=== PATIENT | female | born 1985 | race Two or more races ===

== ENCOUNTER 2018-09-30 00:14 | Emergency (ER) | payer SELFPAY ==
--- NOTE | 2018-09-30 03:28 | ED PDOC ---
HPI: Trauma/Fall - HPI Time Seen by Provider: 09/30/18 00:27 Chief Complaint (Nursing): Alcohol Ingestion Chief Complaint (Provider): Fall History Per: Patient History/Exam Limitations: no limitations Onset/Duration Of Symptoms: Hrs (today) Additional Complaint(s): Radha Dhillon is a 33 year old female, with a past medical history of hypothyroidism, who was brought to the emergency department by EMS for evaluation after she fell downstairs today. Patient admits to drinking alcohol and states she fell down the stairs with trauma to her face and losing x2 teeth. Patient doesn't recall events and is unsure if she lost consciousness. She is currently not complaining of any pain. She denies any drug use or other possible injuries. No further medical complaints. PMD: None provided. Past Medical History Reviewed: Historical Data, Nursing Documentation, Vital Signs Vital Signs: Last Vital Signs Temp Pulse 96 H 09/30/18 00:20 Resp 17 09/30/18 00:20 BP 121/87 09/30/18 00:20 Pulse Ox 97 09/30/18 00:20 - Medical History PMH: Hypothyroidism - Surgical History Surgical History: No Surg Hx - Family History Family History: States: Unknown Family Hx - Social History Current smoker - smoking cessation education provided: Yes (light smoker <10 cigarretes daily) Alcohol: Social Drugs: Denies - Home Medications Home Medications: Ambulatory Orders Medication Instructions Recorded Ibuprofen [Motrin Tab] 600 mg PO Q6 PRN 7 Days tab 09/30/18 - Allergies Allergies/Adverse Reactions: Allergies Allergy/AdvReac Type Severity Reaction Status Date / Time No Known Allergies Allergy Verified 09/30/18 00:27 Review of Systems ROS Statement: Except As Marked, All Systems Reviewed And Found Negative ENT: Positive for: Other (lost x2 teeth from facial trauma) Musculoskeletal: Negative for: Neck Pain, Shoulder Pain Physical Exam - Reviewed Nursing Documentation Reviewed: Yes Vital Signs Reviewed: Yes - Physical Exam Appears: Positive for: Uncomfortable Head Exam: Positive for: ATRAUMATIC, NORMAL INSPECTION, NORMOCEPHALIC Skin: Positive for: Normal Color, Warm, Dry Eye Exam: Positive for: Normal appearance, EOMI, PERRL ENT: Positive for: TM Is/Are (intact), Other (positive swelling to upper lip with an approximated 0.5cm laceration. Missing both left central and lateral incisor.) Neck: Positive for: Normal (No pain on palpation of cervical spine. Cervical collar in place), Painless ROM, Supple Back: Positive for: Other (Pain on palpation of left buttock but no ecchymosis, erythema or swelling noted. No pain on palpation of thoracic or lumbar spine). Negative for: Vertebral Tenderness Extremity: Positive for: Normal ROM (upper and lower extremities ). Negative for: Tenderness, Deformity, Swelling Neurological/Psych: Positive for: Awake, Alert, Normal Tone, Oriented, Other (slurred speech. Smile is symmetrical, no tongue deviation.) - ECG O2 Sat by Pulse Oximetry: 97 (RA) Pulse Ox Interpretation: Normal Medical Decision Making Medical Decision Making: Time: 00:27 Initial Impression: Facial trauma s/p fall Initial Plan: --Cervical Spine w/o contrast [CT] --Head w/o contrast [CT] --Maxillofacial w/o contrast [CT] --Alcohol serum --Urine --Reevaluation 04:[address] FINDINGS: BRAIN No acute intraparenchymal hemorrhage. No mass lesion. No CT evidence for acute territorial infarct. No midline shift or extra-axial collections. VENTRICLES: No hydrocephalus. ORBITS: The orbits are unremarkable. SINUSES AND MASTOIDS: The paranasal sinuses and mastoid air cells are clear. BONES: No fracture. SOFT TISSUES: Left posterior parietal scalp hematoma is seen. IMPRESSION: Left posterior parietal scalp hematoma. No acute intracranial abnormality. 04:[address] FINDINGS: ALIGNMENT: Bony alignment is anatomic. DEGENERATIVE CHANGES: No significant canal stenosis or neural foraminal narrowing evident. SOFT TISSUES: The prevertebral soft tissues are within normal limits. BONES: No acute fracture or aggressive appearing osseous lesion. IMPRESSION: No acute cervical spine abnormality. 04:[address] FINDINGS: BONES: No acute fracture or aggressive appearing osseous lesion. The mandible is intact. SOFT TISSUES: The soft tissues are unremarkable. SINUSES: The sinuses are clear. ORBITS: The orbits are normal. No retrobulbar hematoma or mass. IMPRESSION: Unremarkable maxillofacial CT. Scribe Attestation: Documented by Andrew Ray, acting as a scribe for Betty Capone PA-C Provider Scribe Attestation: All medical record entries made by the Scribe were at my direction and personally dictated by me. I have reviewed the chart and agree that the record accurately reflects my personal performance of the history, physical exam, medical decision making, and the department course for this patient. I have also personally directed, reviewed, and agree with the discharge instructions and disposition. Disposition - Clinical Impression Clinical Impression: Facial trauma - Patient ED Disposition Is Patient to be Admitted: No Counseled Patient/Family Regarding: Studies Performed, Diagnosis, Need For Followup, Rx Given - Disposition Disposition: Routine/Home Disposition Time: 05:21 Condition: STABLE Additional Instructions: You are recommended to go to [facility] ER In [place] as soon as possible for further dental evaluation/treatment of tooth loss. Return to ER if you develop dizziness, headache or worsening bleed. Avoid using your loose teeth until you follow up with dental. Avoid drinking alcohol. Prescriptions: Ibuprofen [Motrin Tab] 600 mg PO Q6 PRN 7 Days tab PRN Reason: Pain, Moderate (4-7) Instructions: Head Injury Observation (DC) Forms: [employer] (Salvadorean) Print Language: [place]
[2018-09-30] MEDS ORDERED: Bacitracin 500 Units/gm Oint Foilpak UD ONE (04:06)
[2018-09-30 05:19] VITALS: BP 133/76; PULSE 79; RESP 16; TEMP 97.7
[2018-09-30 07:21] VITALS: O2SAT 97
--- NOTE | 2018-09-30 10:21 | CT ---
Date of service: 09/30/2018 PROCEDURE: CT HEAD WITHOUT CONTRAST. HISTORY: Status post fall with head trauma, ? LOC COMPARISON: Comparison made with concurrent CT scan maxillofacial skeleton. TECHNIQUE: Axial computed tomography images were obtained through the head/brain without intravenous contrast. Radiation dose: Total exam DLP = 0.0 mGy-cm. This CT exam was performed using one or more of the following dose reduction techniques: Automated exposure control, adjustment of the mA and/or kV according to patient size, and/or use of iterative reconstruction technique. FINDINGS: HEMORRHAGE: No intracranial hemorrhage. BRAIN: No mass effect or edema. No atrophy or chronic microvascular ischemic changes. VENTRICLES: Unremarkable. No hydrocephalus. CALVARIUM: No acute calvarial fractures. There is mild mid and left parasagittal posterior superior parietal scalp contusion.. There is also mild left supraorbital and left lateral periorbital soft tissue swelling. PARANASAL SINUSES: Unremarkable as visualized. No significant inflammatory changes. MASTOID AIR CELLS: Unremarkable as visualized. No inflammatory changes. OTHER FINDINGS: Note made of midline posterior fusion anomaly C1 segment IMPRESSION: No acute intracranial hemorrhage. Mild mid and left parasagittal superior parietal scalp contusion.. Mild left supraorbital and lateral periorbital soft tissue swelling
--- NOTE | 2018-09-30 10:27 | CT ---
Date of service: 09/30/2018 PROCEDURE: CT Cervical Spine without contrast HISTORY: Status post fall with head trauma COMPARISON: None available. TECHNIQUE: Axial computed tomography images were obtained of the cervical spine without the use of intravenous contrast. Coronal and sagittal reformatted images were created and reviewed. Radiation dose: Total exam DLP = 2007.54 mGy-cm. This CT exam was performed using one or more of the following dose reduction techniques: Automated exposure control, adjustment of the mA and/or kV according to patient size, and/or use of iterative reconstruction technique. FINDINGS: VERTEBRAE: The current study reveals no acute compression fractures no retropulsed fragments. There is incomplete fusion defect seen along the posterior arch of the C1 vertebral body segment. There is minimal kyphotic angulation deformity centered at approximately the C4-C5 level with straightening of the normal cervical lordosis above and below this level.. Findings could be secondary to patient positioning in the gantry as well as surrounding hard cervical collar.. The facet joints are adequately aligned DISCS/SPINAL CANAL/NEURAL FORAMINA: Disc space height maintained. No disc herniations nor significant disc bulges. The overall central bony canal and exit foramina appear adequate. PARASPINAL SOFT TISSUES: Unremarkable. OTHER FINDINGS: None. IMPRESSION: Fusion defect (incomplete fusion) posterior arch C1 segment. No evidence of acute fractures.
--- NOTE | 2018-09-30 10:37 | CT ---
Date of service: 09/30/2018 PROCEDURE: CT MAXILLOFACIAL BONES WITHOUT CONTRAST HISTORY: Status fall with facial trauma COMPARISON: None available. TECHNIQUE: Contiguous axial CT images of the maxillofacial bones were obtained. Coronal and sagittal reformats were generated. Radiation dose: Total exam DLP = 0.0 mGy-cm. This CT exam was performed using one or more of the following dose reduction techniques: Automated exposure control, adjustment of the mA and/or kV according to patient size, and/or use of iterative reconstruction technique. FINDINGS: NASAL BONES: Unremarkable. ORBITS: Mild left supraorbital and left lateral periorbital soft tissue swelling. PARANASAL SINUSES/ MASTOIDS: Minor mucosal thickening seen within few ethmoid air cells. MAXILLA: Unremarkable. MANDIBLE/ TEMPOROMANDIBULAR JOINTS: Unremarkable. SKULL BASE: Unremarkable. TEMPORAL BONES: Middle ears and mastoid grossly unremarkable. OTHER FINDINGS: None. IMPRESSION: No evidence of acute maxillofacial skeletal fracture. Minor left supraorbital and left lateral periorbital soft tissue swelling
== END 2018-09-30 05:21 | disposition home or self-care (01) ==
LOC: H.ER 00:14
DX: S09.93XA Unspecified injury of face, initial encounter (principal); W10.9XXA Fall (on) (from) unspecified stairs and steps, initial encounter; F17.200 Nicotine dependence, unspecified, uncomplicated; S00.03XA Contusion of scalp, initial encounter; E03.9 Hypothyroidism, unspecified